=== PATIENT | female | born 1980 | race Caucasian/White ===

== ENCOUNTER 2021-03-14 21:35 | Emergency (ER) | payer OTHER, SELFPAY ==
[2021-03-14 23:05] VITALS: BP 149/76; PULSE 76; RESP 16; TEMP 36.6; O2SAT 99; BMI 41.1
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
--- NOTE | 2021-03-14 23:46 | PC.NURSE ---
PT RIGHT HAND BACTRIAN DSD APPLIED.
== END 2021-03-14 23:49 | disposition home or self-care (01) ==
PROVIDERS: Emergency Provider Emergency Medicine Emergency Medical Services
DX: T23.261A Burn of second degree of back of right hand, initial encounter (principal); T23.161A Burn of first degree of back of right hand, initial encounter; T31.0 Burns involving less than 10% of body surface; X12.XXXA Contact with other hot fluids, initial encounter; Y93.9 Activity, unspecified; Y92.9 Unspecified place or not applicable; Y99.9 Unspecified external cause status
CPT/HCPCS: 16000; 99283

== ENCOUNTER 2021-03-21 12:20 | Emergency (ER) | payer OTHER, SELFPAY ==
[2021-03-21 12:22] VITALS: BP 142/74; PULSE 82; RESP 18; TEMP 36.7; O2SAT 98; BMI 40.6
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
== END 2021-03-21 14:40 | disposition home or self-care (01) ==
PROVIDERS: Emergency Provider Emergency Medicine; PCP Nurse Practitioner Family
DX: T23.061A Burn of unspecified degree of back of right hand, initial encounter (principal); X08.8XXA Exposure to other specified smoke, fire and flames, initial encounter; Y93.9 Activity, unspecified; Y92.9 Unspecified place or not applicable; Y99.9 Unspecified external cause status
CPT/HCPCS: 16020; 99283

== ENCOUNTER 2021-09-05 13:02 | Emergency (ER) | payer OTHER, SELFPAY ==
--- NOTE | ~2021-09-05 | XR_ITS ---
EXAMINATION: XR KNEE, RIGHT CLINICAL INFORMATION: Injury. Pain. COMPARISON: None TECHNIQUE: Four views of the right knee. FINDINGS: No fracture or dislocation. Small suprapatellar joint effusion. Joint spaces are maintained. Small tricompartmental marginal osteophytes. XR/XR knee RT 3V IMPRESSION: Mild degenerative changes of the right knee with small suprapatellar joint effusion.
[2021-09-05 13:20] VITALS: BP 151/80; PULSE 78; RESP 19; TEMP 36.2; O2SAT 97; BMI 38.7
--- NOTE | 2021-09-05 16:48 | ED_ITS ---
HPI - Extremity Injury (Lower) General Chief Complaint: Extremity Injury, Lower Stated Complaint: l knee inj Time Seen by Provider: 09/05/21 16:48 Source: patient Mode of arrival: ambulatory Limitations: no limitations History of Present Illness HPI Narrative: 41-year-old female presents to the emergency department with complaints of right-sided knee pain x6 days progressively worsening. Patient tells me this st arted after she did a new workout where she was frequently on her knees and doing squats. Patient tells me that she feels like her right knee is slightly swollen. She reports that the right-sided knee pain is worse with movement better at rest. She tells me the pain is worst when she ambulates. She denies numbness, tingling, fevers, chills, chest pain, shortness of breath, loss of sensation. Previous knee surgeries. Patient denies direct trauma to the knee. Onset (ago): day(s) (6) Related Data Previous Rx's Medication Instructions Recorded oxycodone 5 mg tablet 5 mg PO Q8H PRN #7 tab 03/14/21 Allergies Allergy/AdvReac Type Severity Reaction Status Date / Time latex Allergy Unknown redness Uncoded 09/12/18 00:00 and itching Review of Systems Review of Systems: Constitutional : No Weight loss, No Fever, No Chills, No Fatigue, No Malaise ENT/Mouth : No sore throat, No Rhinorrhea Eyes: No Eye Pain, No Swelling, No Redness Cardiovascular : No Chest Pain, No SOB, No Dyspnea on Exertion, No Orthopnea, No Edema, No Palpitations Respiratory : No Cough, No Sputum, No Wheezing Gastrointestinal : No Nausea, No Vomiting, No Diarrhea, No Constipation, No abdominal Pain, No Hematochezia, No Melena Genitourinary : No Dysuria, No Urinary Frequency, No Hematuria, Musculoskeletal : + joint pain, No Myalgias, + Joint Swelling Skin : No Skin Lesions, No rash Neuro : No Weakness, No Numbness, No Dizziness, No Headache Psych : No Anxiety/Panic, No Depression All other systems reviewed and are negative Yes all other systems are reviewed and are negative [facility] Past Medical History Attestation statement: The following information was validated with the patient. Source: old records reviewed and nursing notes reviewed Social History Social History Advance Directives: No Advance Directives Information Provided: No Physical Exam Vital Signs: Vital Signs: Last Vital Signs Temp 97.2 F 09/05/21 13:20 Pulse 78 09/05/21 13:20 Resp 19 09/05/21 13:20 BP 151/80 H 09/05/21 13:20 Pulse Ox 97 09/05/21 13:20 BMI result Body Mass Index 38.7 Vital signs stable Appearance: Alert.? Oriented X3.? No acute distress.? Head: Normocephalic, atraumatic, no step-offs or deformities Eyes: Pupils equal, round and reactive to light.? ENT: Pharynx normal.? Neck: Normal inspection.? Neck supple.? CVS: Normal heart rate and rhythm.? Pulses normal.? Respiratory: No respiratory distress.? Breath sounds normal.? Abdomen: Soft and nontender.? Skin: Skin warm and dry.? Normal skin color.? Normal skin turgor.? Extremities: No lower extremity edema.? No calf ttp. 5/5 strength to bilateral upper and lower extremities. Negative anterior and posterior drawer. Negative valgus and varus. Slight edema overlying the right knee. No overlying erythema or calor. Full range of motion to bilateral knees. Intact reflexes. Back: No midline tenderness, no C-spine tenderness, full range of motion, no CVA tenderness bilaterally Neuro: Oriented X 3.? No motor deficit.? No sensory deficit. CN 2-12 intact Course Reevaluation(s) Reevaluation #1: X-ray shows a small suprapatellar effusion. At this time patient will be placed in an Leonardo wrap, she also has slight degenerative changes. Advised her to follow-up with orthopedics. Will give her crutches for comfort. Advised her to return new or worsening symptoms outlined he is on her discharge. I did offer patient Toradol for pain, patient is driving not appropriate to give a narcotic at this time. Advised her she can take ibuprofen or Tylenol as needed for pain. Patient tells me she will take this at home. Comfortable with discharge. Time: 16:51 MDM - Extremity Injury (Lower) MDM Narrative Medical decision making narrative: [id number] This is a 41-year-old female presenting to the emergency department with complaints of right knee pain x6 days status post working out reports she heard a pop. Physical examination with slight edema to the right knee, likely an effusion. No overlying erythema or calor. Negative anterior, posterior drawer. No sudha dent ligament or tendon involvement. Bilateral patellar pulses 2+ equal and bilateral, bilateral posterior tibialis and dorsalis pedis pulses 2+. No step- offs or deformities. Patient ambulating with a steady gait. Patient does have a slight limp favoring her left side. Based off patient history and physical examination unlikely that this is a ligament or tendon complete tear, history and physical not consistent with septic joint, unlikely gout or pseudogout. No signs of cellulitis. Plan at this time is imaging. Medical Records Attestation: I reviewed the patient's medical records. Lab Data Attestation: I reviewed the patient's lab results. Critical Care Time Critical Care Time Critical Care Time: No Discharge Plan Discharge Clinical Impression: Effusion of right knee Patient Disposition: Home, Self-Care Instructions: R.I.C.E. Treatment (ED), Swollen Joint (ED) Additional Instructions: Take your medications as prescribed. If you were prescribed antibiotics today, it is important that you take your medication to their entirety, do not skip any doses, do not finish them early. Follow-up with your primary care provider this week. Follow-up with orthopedics if needed in a week or two Return to the emergency department with new or worsening symptoms. Such as fevers, chills, chest pain, shortness of breath, nausea, vomiting, dizziness, headache, vision changes, lethargy, loss of sensation, numbness or tingling, fevers, chills, overlying skin changes, inability to bend or extend the knee. In case of emergency call 911 You can take ibuprofen every 6 hours, Tylenol every 4 as needed and as tolerated for pain or discomfort. Please wear your Leonardo wrap as discussed. Rest, ice, compress, elevate. We went over worrisome signs and symptoms at the bedside and I advised you to return if any of these arise. Prescriptions: No Action oxycodone 5 mg tablet 5 mg PO Q8H PRN (Reason: pain) Qty: 7 0RF Referrals: [facility] [Provider Group] - 1 week Stand Alone Forms: Work/School Release
== END 2021-09-05 17:34 | disposition home or self-care (01) ==
PROVIDERS: Emergency Provider Internal Medicine; PCP Nurse Practitioner Family
DX: M25.461 Effusion, right knee (principal)
CPT/HCPCS: 73562; 99283